=== PATIENT | male | born 1940 | race Caucasian/White ===

== ENCOUNTER 2020-03-14 17:29 | Emergency (ER) | payer MEDICARE ==
[~2020-03-14] VITALS: Ht 182.9 cm; Wt 63.6 kg
[2020-03-14 18:23] VITALS: BP 127/68
--- NOTE | 2020-03-14 18:35 | PHYS DOC ---
General Adult EDM: Chief Complaint: OTHER COMPLAINTS HPI: HPI: 79-year-old male presents with concern for PICC line issue. He had it replaced today by his home health nurse. Later, he had some bleeding from the site. The home health people were concerned that the placement may not be appropriate. They recommended he come the emergency room for confirmation of placement. Patient is otherwise feeling fine. He is getting daily IV antibiotics for an infection. He denies fever chills. He has no other complaints this time. Review of Systems: Review of Systems: Constitutional: Denies fever or chills Eyes: Denies change in visual acuity HENT: Denies nasal congestion or sore throat Respiratory: Denies cough or shortness of breath Cardiovascular: Denies chest pain or edema GI: Denies abdominal pain, nausea, vomiting, bloody stools or diarrhea : Denies dysuria Musculoskeletal: Denies back pain or joint pain Integument: Bleeding PICC line in right arm Neurologic: Denies headache, focal weakness or sensory changes Endocrine: Denies polyuria or polydipsia Lymphatic: Denies swollen glands Psychiatric: Denies depression or anxiety Heart Score: Risk Factors: Risk Factors: DM, Current or recent (<one month) smoker, HTN, HLP, family history of CAD, obesity. Risk Scores: Score 0 - 3: 2.5% MACE over next 6 weeks - Discharge Home Score 4 - 6: 20.3% MACE over next 6 weeks - Admit for Clinical Observation Score 7 - 10: 72.7% MACE over next 6 weeks - Early Invasive Strategies Allergies: Allergies: Allergies Coded Allergies Type Severity Reaction Last Updated Verified MACKENZIE Inhibitors Allergy Unknown Unknown 03/14/20 Yes hydrochlorothiazide Allergy Unknown Unknown 03/14/20 Yes Physical Exam: PE: Constitutional: Well developed, well nourished, no acute distress, non-toxic appearance. [] HENT: Normocephalic, atraumatic, bilateral external ears normal, oropharynx moist, no oral exudates, nose normal. [] Eyes: PERRLA, EOMI, conjunctiva normal, no discharge. [] Neck: Normal range of motion, no tenderness, supple, no stridor. [] Cardiovascular:Heart rate regular rhythm, no murmur [] Lungs & Thorax: Bilateral breath sounds clear to auscultation [] Abdomen: Bowel sounds normal, soft, no tenderness, no masses, no pulsatile masses. [] Skin: Right arm PICC line with small amount of bright red blood under dressing [ ] Back: No tenderness, no CVA tenderness. [] Extremities: No tenderness, no cyanosis, no clubbing, ROM intact, no edema. [] Neurologic: Alert and oriented X 3, normal motor function, normal sensory function, no focal deficits noted. [] Psychologic: Affect normal, judgement normal, mood normal. [] EKG: EKG: [] Radiology/Procedures: Radiology/Procedures: [] Impressions: CHEST AP ONLY History: PICC line. Comparison: None. Findings: No consolidation or pleural effusion. Normal heart size. No pneumothorax. Right PICC with tip projecting over the mid SVC. Impression: 1. Right PICC with tip projecting over the mid SVC. Electronically signed by: Manan Jansen DO (03/14/2020 7:00 PM) [facility] DICTATED AND SIGNED BY: MANAN JANSEN DO DATE: 03/14/201899 CC: ANEL CANNON DO; PRINCESS PAEZ ~ Course & Med Decision Making: Course & Med Decision Making Pertinent Labs and Imaging studies reviewed. (See chart for details) The patient's PICC line is in proper place. We will attempt to draw blood and flush it. The patient's PICC line is working as expected. We are changing the dressing, there was a small skin tear near the insertion site that was bleeding. This was likely a small tear from changing the dressing earlier today. We placed a small Xeroform over the area and replaced the Tegaderm. The patient is stable for discharge at this time. [] Dragon Disclaimer: Dragjesenia Disclaimer: This electronic medical record was generated, in whole or in part, using a voice recognition dictation system. Departure Departure: Impression: Primary Impression: Complication associated with peripherally inserted central catheter (PICC) Qualified Codes: T82.9XXA - Unspecified complication of cardiac and vascular prosthetic device, implant and graft, initial encounter Disposition: 01 HOME/RESIDENCE PRIOR TO ADM Condition: IMPROVED Referrals: PRINCESS PAEZ (PCP) Patient Instructions: PICC Home Guide ANEL CANNON DO March 14, 2020 18:35
--- NOTE | 2020-03-14 19:03 | RAD ---
CHEST AP ONLY History: PICC line. Comparison: None. Findings: No consolidation or pleural effusion. Normal heart size. No pneumothorax. Right PICC with tip projecting over the mid SVC. Impression: 1. Right PICC with tip projecting over the mid SVC. Electronically signed by: Manan Lozano DO (03/14/2020 7:00 PM) [facility]
[2020-03-14] MEDS ORDERED: GELATIN SPONGE SIZE 12-7MM SPONGE. ONE (19:51)
[2020-03-14] MEDS ORDERED: HEPARIN PF 500 UNIT/5 ML DISP.SYRIN. ONE (20:03)
[2020-03-14] MEDS: GELATIN SPONGE SIZE 12-7MM SPONGE. TP ONE (20:05)
[2020-03-14] MEDS: HEPARIN PF 500 UNIT/5 ML DISP.SYRIN. IVP ONE (20:10)
== END 2020-03-14 20:20 | disposition home or self-care (01) ==
LOC: ER 17:29
DX: T82.838A Hemorrhage due to vascular prosthetic devices, implants and grafts, initial encounter (principal); Z88.8 Allergy status to other drugs, medicaments and biological substances
CPT/HCPCS: 71045; 99285